=== PATIENT | female | born 1955 | race Caucasian/White ===

== ENCOUNTER 2019-04-04 14:47 | Inpatient (IN) | payer OTHER ==
[2019-04-04 14:52] VITALS: BMI 27.8
--- NOTE | 2019-04-04 15:36 | ED PDOC ---
HPI: Psych/Substance Abuse Time Seen by Provider: 04/04/19 15:02 Chief Complaint (Nursing): Psychiatric Evaluation Chief Complaint (Provider): Psychiatric Evaluation History Per: Patient History/Exam Limitations: no limitations Onset/Duration Of Symptoms: Mins (x30) Current Symptoms Are (Timing): Still Present Additional Complaint(s): 63 y/o female brought in with son for evaluation of suicidal attempt. Son reports patient took 52 mg of Xanax about 30 minutes prior to arrival. Patient is currently complaining of depression. PMD: no provider Past Medical History Reviewed: Historical Data, Nursing Documentation, Vital Signs Vital Signs: Last Vital Signs Temp 97.5 F L 04/04/19 14:52 Pulse 65 04/04/19 14:52 Resp 18 04/04/19 14:52 BP 112/70 04/04/19 14:52 Pulse Ox 99 04/04/19 14:52 Primary Care Provider: Non [facility] Provider, - Medical History PMH: No Chronic Diseases - Surgical History Surgical History: No Surg Hx - Family History Family History: States: Unknown Family Hx - Home Medications Home Medications: Ambulatory Orders Medication Instructions Recorded Unobtainable 07/09/18 - Allergies Allergies/Adverse Reactions: Allergies Allergy/AdvReac Type Severity Reaction Status Date / Time Unobtainable Allergy Verified 07/09/18 14:43 Review of Systems ROS Statement: Except As Marked, All Systems Reviewed And Found Negative Psych: Positive for: Depression, Suicidal ideation (with overdose attempt) Physical Exam - Reviewed Nursing Documentation Reviewed: Yes Vital Signs Reviewed: Yes - Physical Exam Appears: Positive for: No Acute Distress Head Exam: Positive for: ATRAUMATIC, NORMOCEPHALIC Skin: Positive for: Normal Color, Warm, Dry Eye Exam: Positive for: Normal appearance, EOMI, PERRL ENT: Positive for: Normal ENT Inspection Neck: Positive for: Normal, Painless ROM, Supple Cardiovascular/Chest: Positive for: Regular Rate, Rhythm. Negative for: Murmur Respiratory: Positive for: Normal Breath Sounds. Negative for: Respiratory Distress Gastrointestinal/Abdominal: Positive for: Normal Exam, Soft. Negative for: Tenderness, Mass, Guarding, Rebound Back: Positive for: Normal Inspection. Negative for: L CVA Tenderness, R CVA Tenderness, Vertebral Tenderness Extremity: Positive for: Normal ROM. Negative for: Pedal Edema, Deformity Neurological/Psych: Positive for: Awake, Alert, Symmetric/Intact Strength, O riented (x3), Mood/Affect (Depressed Mood/Flat Affect), Cerebellar Tests (normal), rn midwife II-XII (intact). Negative for: Lethargic, Motor/Sensory Deficits, Facial Droop - Laboratory Results Result Diagrams: 04/04/19 16:21 04/04/19 16:21 - ECG Interpretation Of ECG: Sinus deonte @ 58, no ST-T changes. O2 Sat by Pulse Oximetry: 99 (RA) Pulse Ox Interpretation: Normal Medical Decision Making Medical Decision Making: Time: 151 Impression: Suicidal Attempt Plan: -- EKG -- Acetaminophen -- Alcohol Serum -- CMP -- Urine Drug Screen -- Salicylate -- ED Urine Dipstick -- CBC with Differentials -- CXR One View -- 1:1 Observation -- Glucose, Blood, POC -- Urinalysis Scribe Attestation: Documented by Camila Hanley, acting as a scribe for Alie Howe MD. Provider Scribe Attestation: All medical record entries made by the Scribe were at my direction and personally dictated by me. I have reviewed the chart and agree that the record accurately reflects my personal performance of the history, physical exam, medical decision making, and the department course for this patient. I have also personally directed, reviewed, and agree with the discharge instructions and disposition. Disposition - Disposition Forms: [employer] ([place])
[2019-04-04 16:27] LABS: BASO % 0.7 % (0.0-2.0); EOS # 0.1 K/uL (0.0-0.7); EOS % 1.7 % (0.0-4.0); HEMOGLOBIN 12.7 g/dL (12.0-16.0); LYMPH # 1.7 K/uL (1.0-4.3); LYMPH % 32.8 % (20.0-40.0); MEAN CELL VOLUME 88.3 fl (81.0-99.0); MEAN CORPUSCULAR HEMOGLOBIN 29.4 pg (27.0-31.0); MEAN CORPUSCULAR HGB CONC 33.3 g/dL (33.0-37.0); MEAN PLATELET VOLUME 7.9 fl (7.2-11.7); MONO # 0.4 K/uL (0.0-0.8); NEUT # 3.1 K/uL (1.8-7.0); NEUT % 57.8 % (50.0-75.0); NRBC % 0.3 % (0.0-0.0); RBC 4.31 Mil/uL (3.80-5.20); RED CELL DISTRIBUTION WIDTH 14.4 % (11.5-14.5); WHITE BLOOD COUNT 5.3 K/uL (4.8-10.8)
[2019-04-04 16:35] LABS: ALB/GLOB RATIO 1.2 (1.0-2.1); ALBUMIN 4.1 g/dL (3.5-5.0); ALT/SGPT 25 U/L (9-52); AST/SGOT 28 U/L (14-36); BLOOD UREA NITROGEN 14 mg/dl (7-17); CALCIUM 9.3 mg/dL (8.4-10.2); GFR NON-AFRICAN AMERICAN > 60
[2019-04-04] MEDS ORDERED: Potassium Chloride 20 mEq ER Tab PO STA (16:37)
[2019-04-04 16:38] LABS: ACETAMINOPHEN < 10.0 ug/ml (10.0-30.0); SALICYLATE < 1.0 mg/dl
[2019-04-04] MEDS ORDERED: Sodium Chloride 0.9% 1,000 ML IV STA (16:55)
[2019-04-04] MEDS ORDERED: Potassium Chloride 20 mEq ER Tab PO ONE (17:03)
--- NOTE | 2019-04-04 17:39 | ED PDOC ---
- Laboratory Results Result Diagrams: 04/06/19 04:30 04/06/19 04:30 Lab Results: Total Bilirubin 0.4 mg/dl (0.2-1.3) 04/04/19 16:21 AST 28 U/L (14-36) 04/04/19 16:21 ALT 25 U/L (9-52) 04/04/19 16:21 Alkaline Phosphatase 78 U/L (38-126) 04/04/19 16:21 Total Protein 7.4 G/DL (6.3-8.2) 04/04/19 16:21 Albumin 4.1 g/dL (3.5-5.0) 04/04/19 16:21 Globulin 3.3 gm/dL (2.2-3.9) 04/04/19 16:21 Albumin/Globulin Ratio 1.2 (1.0-2.1) 04/04/19 16:21 - ECG O2 Sat by Pulse Oximetry: 99 (RA) Pulse Ox Interpretation: Normal Medical Decision Making Medical Decision Making: Time: 1700 -- Patient endorsed to me by Dr. Howe, pending ER workup, re-assessment and final ER disposition. Time: 1737 -- Discussed with Dr. Mcdaniels, hospitalist events solutions consultant admitting for PMD, Dr. Snowden. Patient to be admitted under his service. -- Discussed with son and patient findings and plan of care. At this time, patient is lethargic but easily arousable with slurred speech. CXR Accession No. : [id number] Patient Name / ID : BREEZY CERNA / [id number] Exam Date : 04/04/2019 15:00:31 ( Approved ) Study Comment : Sex / Age : F / 63Y Creator : Chun Ortega MD Dictator : Chun Ortega MD Hospice Care Transitions Coordinator : Road Gang Supervisor : Chun Ortega MD Approver2 : Report Date : 04/04/2019 18:22:19 My Comment : Date of service: 04/04/2019 HISTORY: OD COMPARISON: None available. TECHNIQUE: 1 view obtained. FINDINGS: LUNGS: No active pulmonary disease. PLEURA: No significant pleural effusion identified, no pneumothorax apparent. CARDIOVASCULAR: No aortic atherosclerotic calcification present. Normal cardiac size. No pulmonary vascular congestion. OSSEOUS STRUCTURES: No significant abnormalities. VISUALIZED UPPER ABDOMEN: Normal. OTHER FINDINGS: None. IMPRESSION: No acute cardiopulmonary disease appreciated. Scribe Attestation: Documented by Camila Hanley, acting as a scribe for Paris Presley MD. Provider Scribe Attestation: All medical record entries made by the Scribe were at my direction and personally dictated by me. I have reviewed the chart and agree that the record accurately reflects my personal performance of the history, physical exam, medical decision making, and the department course for this patient. I have also personally directed, reviewed, and agree with the discharge instructions and disposition. Disposition Counseled Patient/Family Regarding: Studies Performed, Diagnosis - Clinical Impression Clinical Impression: Sedative overdose, Suicidal behavior - POA Present On Arrival: Falls Or Trauma (risk) - Disposition Disposition: Admitted as In-Patient Disposition Time: 17:00 Condition: FAIR
--- NOTE | 2019-04-04 18:26 | RAD ---
Date of service: 04/04/2019 HISTORY: OD COMPARISON: None available. TECHNIQUE: 1 view obtained. FINDINGS: LUNGS: No active pulmonary disease. PLEURA: No significant pleural effusion identified, no pneumothorax apparent. CARDIOVASCULAR: No aortic atherosclerotic calcification present. Normal cardiac size. No pulmonary vascular congestion. OSSEOUS STRUCTURES: No significant abnormalities. VISUALIZED UPPER ABDOMEN: Normal. OTHER FINDINGS: None. IMPRESSION: No acute cardiopulmonary disease appreciated.
[2019-04-04 18:45] LABS: URINE BILIRUBIN NEGATIVE (NEGATIVE); URINE BLOOD NEGATIVE (NEGATIVE); URINE CLARITY CLEAR (Clear); URINE COLOR STRAW (YELLOW); URINE GLUCOSE (UA) NEG (NEGATIVE); URINE LEUKOCYTE ESTERASE NEG Leu/uL (Negative); URINE PROTEIN NEGATIVE (NEGATIVE); URINE UROBILINOGEN 0.2-1.0 mg/dL (0.2-1.0)
[2019-04-04 19:03] LABS: BARBITURATES, UR NEGATIVE (NEGATIVE); BENZODIAZEPINES, UR POSITIVE (NEGATIVE); OPIATES, UR NEGATIVE (NEGATIVE); PHENCYCLIDINE, UR NEGATIVE (NEGATIVE)
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
[2019-04-05] MEDS: Sodium Chloride 0.9% 1,000 ML IV SCH ×3 (03:00→20:28)
[2019-04-05] MEDS ORDERED: Pneumococcal 23-Valent Vaccine IM ONE (06:00)
[2019-04-05 06:14] LABS: BLOOD UREA NITROGEN 10 mg/dl (7-17); CALCIUM 9.2 mg/dL (8.4-10.2); GFR NON-AFRICAN AMERICAN > 60
--- NOTE | 2019-04-05 08:11 | CARD ---
APPROVED REPORT Date of service: 04/05/2019 EKG Measurement Heart [id number] <Conclusion> Sinus bradycardia with 1st degree AV block Otherwise normal ECG
[2019-04-05] MEDS: Enoxaparin 40 mg Syringe SC SCH ×2 (09:22→20:33)
--- NOTE | 2019-04-05 09:32 | CP.PCM.PN ---
<GabbieMatthewLamar - Last Filed: 04/05/19 14:15> Subjective - Date & Time of Evaluation Date of Evaluation: 04/05/19 Time of Evaluation: 09:00 - Subjective Subjective: Patient seen and examined at bedside. Reports mild dizziness. Denies chest pain, shortness of breath, nausea, vomiting, abdominal pain. Asymptomatic bradycardia noted on tele monitor. [facility] [address] - Xanax 2 mg BID - [place] 300mg 1 tablet HS - Nasonex - Crestor 20mg HS - Zyrtec 10mg daily - Singulair 10mg HS - Prozac 40mg daily Objective - Vital Signs/Intake and Output Vital Signs (last 24 hours): Temp Pulse Resp BP Pulse Ox 96.3 F L 46 L 20 106/67 100 04/05/19 07:54 04/05/19 07:54 04/05/19 07:54 04/05/19 07:54 04/05/19 07:54 - Medications Medications: Current Medications Acetaminophen (Tylenol 325mg Tab) 650 mg PO Q6 PRN PRN Reason: Headache Acetaminophen (Tylenol 325mg Tab) 650 mg PO Q6 PRN PRN Reason: Fever >100.4 F Enoxaparin Sodium (Lovenox) 40 mg SC DAILY [facility]; Protocol Last Admin: 04/05/19 09:22 Dose: 40 mg Sodium Chloride (Sodium Chloride 0.9%) 1,000 mls @ 125 mls/hr IV .Q8H [facility] Stop: 04/06/19 02:53 Last Admin: 04/05/19 03:00 Dose: 125 mls/hr - Labs Labs: 04/04/19 16:21 04/05/19 05:28 - Constitutional Appears: No Acute Distress - Eye Exam Eye Exam: Normal appearance - ENT Exam ENT Exam: Mucous Membranes Moist - Respiratory Exam Respiratory Exam: Clear to Ausculation Bilateral, NORMAL BREATHING PATTERN. absent: Accessory Muscle Use, Chest Wall Tenderness, Decreased Breath Sounds, Prolonged Expiratory Phase, Rales, Rhonchi, Wheezes, Respiratory Distress, Stridor - Cardiovascular Exam Cardiovascular Exam: +S1, +S2 - GI/Abdominal Exam GI & Abdominal Exam: Soft, Normal Bowel Sounds. absent: Distended, Firm, Guarding, Rigid, Tenderness, Rebound - Neurological Exam Neurological Exam: Alert Additional comments: Speaking slowly and answering questions inappropriately. Denies SI/HI at this time but does not want to state why she wanted to kill herself yesterday. - Psychiatric Exam Psychiatric exam: Depressed. absent: Homicidal Ideation, Suicidal Ideation Additional comments: Denies SI/HI at this time but does not want to state why she wanted to kill herself yesterday. - Skin Skin Exam: Dry, Intact, Normal Color, Warm Assessment and Plan - Assessment and Plan (Free Text) Assessment: 63 yo Female with history of HTN, HLD, bipolar disorder and schizophrenia is admitted for drug overdose. Poison controlled was called, monitor neuro and respiratory status. Drug levels checked as per poison control, neg. Psychiatry consult, continue home medications including [place] and Prozac. Plan: Drug Overdose - Xanax overdose - poison control - c/w with neuro checks - psycho consulted, appreciate recommendations - [facility] protocol - continue 1:1 obs - blood work reviewed: wn - [facility] protocol Bipolar disorder and schizophrenia - c/w with [place] 300mg 1 tablet HS; Prozac 40mg daily --> verified with pt's pharmacy 04/05/19 - psych consulted- appreciate recommendations HTN/HLD - chronic - currently well controlled - c/t monitor Hypokalemia and mild hypochloremia - Resolved DVT prolx - Lovenox SC <Christy Oliveros - Last Filed: 04/05/19 16:45> Objective - Vital Signs/Intake and Output Vital Signs (last 24 hours): Temp Pulse Resp BP Pulse Ox 97.8 F 50 L 16 109/74 97 04/05/19 16:08 04/05/19 16:08 04/05/19 16:08 04/05/19 16:08 04/05/19 16:08 - Medications Medications: Current Medications Acetaminophen (Tylenol 325mg Tab) 650 mg PO Q6 PRN PRN Reason: Headache Acetaminophen (Tylenol 325mg Tab) 650 mg PO Q6 PRN PRN Reason: Fever >100.4 F Atorvastatin Calcium (Lipitor) 20 mg PO HS [facility] Chlordiazepoxide (Librium) 25 mg PO Q4H PRN PRN Reason: Withdrawl Enoxaparin Sodium (Lovenox) 40 mg SC DAILY [facility]; Protocol Last Admin: 04/05/19 09:22 Dose: 40 mg Fluoxetine HCl (Prozac) 40 mg PO DAILY [facility] Last Admin: 04/05/19 16:15 Dose: 40 mg Sodium Chloride (Sodium Chloride 0.9%) 1,000 mls @ 125 mls/hr IV .Q8H [facility] Stop: 04/06/19 02:53 Last Admin: 04/05/19 12:02 Dose: 125 mls/hr [place] Carbonate ([place] Carbonate 300mg) 300 mg PO HS [facility] Montelukast Sodium (Singulair) 10 mg PO HS [facility] - Labs Labs: 04/04/19 16:21 04/05/19 05:28 Attending/Attestation - Attestation I have personally seen and examined this patient.: Yes I have fully participated in the care of the patient.: Yes I have reviewed all pertinent clinical information, including history, physical exam and plan: Yes Notes (Text): Intentional Drug Overdose ( Benzodiazepine- Xanax) Suicidal Attempt Bipolar Disorder Hyperlipidemia -Pt being monitored in Telemetry -due to bradycardia ( HR 50s , pt's baseline is in the 60s) - Psych consulted- rec 1:1 and [facility] for Involuntary Psych - will continue to monitor in Telemetry
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
--- NOTE | 2019-04-05 10:10 | CARD ---
APPROVED REPORT Date of service: 04/04/2019 EKG Measurement Heart [id number] <Conclusion> Sinus bradycardia Otherwise normal ECG
[2019-04-06 06:07] LABS: HEMOGLOBIN 12.7 g/dL (12.0-16.0); MEAN CELL VOLUME 90.6 fl (81.0-99.0); MEAN CORPUSCULAR HEMOGLOBIN 29.8 pg (27.0-31.0); MEAN CORPUSCULAR HGB CONC 32.9 g/dL (33.0-37.0); RBC 4.25 Mil/uL (3.80-5.20); RED CELL DISTRIBUTION WIDTH 14.6 % (11.5-14.5); WHITE BLOOD COUNT 7.6 K/uL (4.8-10.8)
[2019-04-06 06:36] LABS: BLOOD UREA NITROGEN 13 mg/dl (7-17); CALCIUM 9.2 mg/dL (8.4-10.2); GFR NON-AFRICAN AMERICAN > 60
[2019-04-06] MEDS: Enoxaparin 40 mg Syringe SC SCH (09:00)
--- NOTE | 2019-04-06 10:44 | CP.PCM.PN ---
<HeribertodalyleónjessikaMatthew aggarwalLamar - Last Filed: 04/06/19 10:41> Subjective - Date & Time of Evaluation Date of Evaluation: 04/06/19 Time of Evaluation: 10:41 - Subjective Subjective: Patient seen and examined at bedside. Patient is asleep, recieved Ativan and Haldol overnight as she was agitated and wanted to elope. Unable to answer any questions at this time given she is sleeping. P[place] [facility] [place]. Objective - Vital Signs/Intake and Output Vital Signs (last 24 hours): Temp Pulse Resp BP Pulse Ox 97.9 F 59 L 18 91/58 L 98 04/06/19 07:55 04/06/19 07:55 04/06/19 07:55 04/06/19 07:55 04/06/19 07:55 - Medications Medications: Current Medications Acetaminophen (Tylenol 325mg Tab) 650 mg PO Q6 PRN PRN Reason: Headache Acetaminophen (Tylenol 325mg Tab) 650 mg PO Q6 PRN PRN Reason: Fever >100.4 F Atorvastatin Calcium (Lipitor) 20 mg PO [facility] Last Admin: 04/05/19 21:57 Dose: 20 mg Chlordiazepoxide (Librium) 25 mg PO Q4H PRN PRN Reason: Withdrawl Enoxaparin Sodium (Lovenox) 40 mg SC DAILY [facility]; Protocol Last Admin: 04/05/19 20:33 Dose: Not Given Fluoxetine HCl (Prozac) 40 mg PO DAILY [facility] Last Admin: 04/06/19 08:59 Dose: 40 mg [place] Carbonate ([place] Carbonate 300mg) 300 mg PO [facility] Last Admin: 04/05/19 21:57 Dose: 300 mg Montelukast Sodium (Singulair) 10 mg PO [facility] Last Admin: 04/05/19 21:57 Dose: 10 mg - Labs Labs: 04/06/19 04:30 04/06/19 04:30 - Constitutional Appears: No Acute Distress - Eye Exam Eye Exam: Normal appearance - Respiratory Exam Respiratory Exam: Clear to Ausculation Bilateral, NORMAL BREATHING PATTERN. absent: Accessory Muscle Use, Chest Wall Tenderness, Decreased Breath Sounds, Prolonged Expiratory Phase, Rales, Rhonchi, Wheezes, Respiratory Distress, Stridor - Cardiovascular Exam Cardiovascular Exam: +S1, +S2 - GI/Abdominal Exam GI & Abdominal Exam: Soft, Normal Bowel Sounds. absent: Distended, Firm, Guarding, Rigid, Tenderness, Rebound - Extremities Exam Extremities Exam: Normal Capillary Refill, Normal Inspection. absent: Calf Tenderness, Pedal Edema, Tenderness - Neurological Exam Additional comments: Asleep secondary to haldol and ativan overnight. - Skin Skin Exam: Dry, Intact, Normal Color, Warm Assessment and Plan - Assessment and Plan (Free Text) Assessment: 63 yo Female with history of HTN, HLD, bipolar disorder and schizophrenia is admitted for drug overdose. Poison controlled was called, monitor neuro and respiratory status. Drug levels checked as per poison control, neg. Pending [facility] [place] for involuntary psychiatric admission. Patient tried to elope yesterday with son and was agitated- was given Haldol and Ativan at that time. Plan: Drug Overdose -Xanax overdose -poison control -c/w with neuro checks -psych consulted- [facility] [place]. - EVELIN protocol - continue 1:1 obs - blood work reviewed: wnl Bipolar disorder and schizophrenia - c/w with [place] 300mg 1 tablet HS; Prozac 40mg daily --> verified with pt's pharmacy - psych consulted- [facility] [place] HTN/HLD -chronic -currently well controlled -c/t monitor Hypokalemia and mild hypochloremia - Resolved DVT prolx -Lovenox <Oneal Peter D - Last Filed: 04/06/19 11:01> Objective - Vital Signs/Intake and Output Vital Signs (last 24 hours): Temp Pulse Resp BP Pulse Ox 97.9 F 59 L 18 91/58 L 98 04/06/19 07:55 04/06/19 07:55 04/06/19 07:55 04/06/19 07:55 04/06/19 07:55 - Medications Medications: Current Medications Acetaminophen (Tylenol 325mg Tab) 650 mg PO Q6 PRN PRN Reason: Headache Acetaminophen (Tylenol 325mg Tab) 650 mg PO Q6 PRN PRN Reason: Fever >100.4 F Atorvastatin Calcium (Lipitor) 20 mg PO HS [facility] Last Admin: 04/05/19 21:57 Dose: 20 mg Chlordiazepoxide (Librium) 25 mg PO Q4H PRN PRN Reason: Withdrawl Enoxaparin Sodium (Lovenox) 40 mg SC DAILY [facility]; Protocol Last Admin: 04/05/19 20:33 Dose: Not Given Fluoxetine HCl (Prozac) 40 mg PO DAILY [facility] Last Admin: 04/06/19 08:59 Dose: 40 mg [place] Carbonate ([place] Carbonate 300mg) 300 mg PO [facility] Last Admin: 04/05/19 21:57 Dose: 300 mg Montelukast Sodium (Singulair) 10 mg PO [facility] Last Admin: 04/05/19 21:57 Dose: 10 mg - Labs Labs: 04/06/19 04:30 04/06/19 04:30 Attending/Attestation - Attestation I have personally seen and examined this patient.: Yes I have fully participated in the care of the patient.: Yes I have reviewed all pertinent clinical information, including history, physical exam and plan: Yes Notes (Text): 04/06/19 11:00 Patient seen and examined with resident. Case discussed and agreed with assessment and plan.
[2019-04-06 15:43] VITALS: RESP 20
--- NOTE | 2019-04-06 19:17 | CP.PCM.DIS ---
<Latha Momin - Last Filed: 04/06/19 19:21> Provider - Provider Date of Admission: 04/04/19 17:36 Attending physician: Oneal Peter MD Consults: 04/04/19 18:56 Psychiatry Consult Routine Comment: Consulting Provider: Gianni Collier Consulting Physician: Gianni Collier Reason for Consult: Overdose with Xanax, please eval Time Spent in preparation of Discharge (in minutes): 45 Diagnosis - Discharge Diagnosis (1) Sedative overdose Status: Acute (2) Suicidal behavior Status: Acute Hospital Course - Lab Results Lab Results: Most Recent Lab Values WBC 7.6 K/uL (4.8-10.8) 04/06/19 04:30 RBC 4.25 Mil/uL (3.80-5.20) 04/06/19 04:30 Hgb 12.7 g/dL (12.0-16.0) 04/06/19 04:30 Hct 38.5 % (34.0-47.0) 04/06/19 04:30 MCV 90.6 fl (81.0-99.0) D 04/06/19 04:30 MCH 29.8 pg (27.0-31.0) 04/06/19 04:30 MCHC 32.9 g/dL (33.0-37.0) L 04/06/19 04:30 RDW 14.6 % (11.5-14.5) H 04/06/19 04:30 Plt Count 254 K/uL (130-400) 04/06/19 04:30 MPV 7.9 fl (7.2-11.7) 04/04/19 16:21 Neut % (Auto) 57.8 % (50.0-75.0) 04/04/19 16:21 Lymph % (Auto) 32.8 % (20.0-40.0) 04/04/19 16:21 [place] % (Auto) 7.0 % (0.0-10.0) 04/04/19 16:21 Eos % (Auto) 1.7 % (0.0-4.0) 04/04/19 16:21 Baso % (Auto) 0.7 % (0.0-2.0) 04/04/19 16:21 Neut # (Auto) 3.1 K/uL (1.8-7.0) 04/04/19 16:21 Lymph # (Auto) 1.7 K/uL (1.0-4.3) 04/04/19 16:21 [place] # (Auto) 0.4 K/uL (0.0-0.8) 04/04/19 16:21 Eos # (Auto) 0.1 K/uL (0.0-0.7) 04/04/19 16:21 Baso # (Auto) 0.0 K/uL (0.0-0.2) 04/04/19 16:21 Sodium 138 mmol/l (132-148) 04/06/19 04:30 Potassium 3.6 MMOL/L (3.6-5.0) 04/06/19 04:30 Chloride 106 mmol/L (98-107) 04/06/19 04:30 Carbon Dioxide 24 mmol/L (22-30) 04/06/19 04:30 Anion Gap 12 (10-20) 04/06/19 04:30 BUN 13 mg/dl (7-17) 04/06/19 04:30 Creatinine 0.7 mg/dl (0.7-1.2) 04/06/19 04:30 Est GFR ( Amer) > 60 04/06/19 04:30 Est GFR (Non-Af Amer) > 60 04/06/19 04:30 POC Glucose (mg/dL) 106 mg/dL (65-110) 04/04/19 16:08 Random Glucose 93 mg/dL (65-105) 04/06/19 04:30 Calcium 9.2 mg/dL (8.4-10.2) 04/06/19 04:30 Total Bilirubin 0.4 mg/dl (0.2-1.3) 04/04/19 16:21 AST 28 U/L (14-36) 04/04/19 16:21 ALT 25 U/L (9-52) 04/04/19 16:21 Alkaline Phosphatase 78 U/L (38-126) 04/04/19 16:21 Total Protein 7.4 G/DL (6.3-8.2) 04/04/19 16:21 Albumin 4.1 g/dL (3.5-5.0) 04/04/19 16:21 Globulin 3.3 gm/dL (2.2-3.9) 04/04/19 16:21 Albumin/Globulin Ratio 1.2 (1.0-2.1) 04/04/19 16:21 Urine Color Straw (YELLOW) 04/04/19 18:36 Urine Clarity Clear (Clear) 04/04/19 18:36 Urine pH 8.0 (5.0-8.0) 04/04/19 18:36 Ur Specific [place] 1.005 (1.003-1.030) 04/04/19 18:36 Urine Protein Negative mg/dL (NEGATIVE) 04/04/19 18:36 Urine Glucose (UA) Neg mg/dL (NEGATIVE) 04/04/19 18:36 Urine Ketones Negative mg/dL (NEGATIVE) 04/04/19 18:36 Urine Blood Negative (NEGATIVE) 04/04/19 18:36 Urine Nitrate Negative (NEGATIVE) 04/04/19 18:36 Urine Bilirubin Negative (NEGATIVE) 04/04/19 18:36 Urine Urobilinogen 0.2-1.0 mg/dL (0.2-1.0) 04/04/19 18:36 Ur Leukocyte Esterase Neg [place]ia/uL (Negative) 04/04/19 18:36 Urine Microscopic WBC < 1 /hpf (0-5) 04/04/19 18:36 Salicylates < 1.0 mg/dl 04/04/19 16:21 Urine Opiates Screen Negative (NEGATIVE) 04/04/19 18:36 Urine Methadone Screen Negative (NEGATIVE) 04/04/19 18:36 Acetaminophen < 10.0 ug/ml (10.0-30.0) L 04/04/19 16:21 Ur Barbiturates Screen Negative (NEGATIVE) 04/04/19 18:36 Ur Phencyclidine Scrn Negative (NEGATIVE) 04/04/19 18:36 Ur Amphetamines Screen Negative (NEGATIVE) 04/04/19 18:36 U Benzodiazepines Scrn Positive (NEGATIVE) 04/04/19 18:[address] [place] [address] [place] < 0.2 MMOL/L (0.6-1.2) L 04/05/19 20:40 U Oth Cocaine Metabols Negative (NEGATIVE) 04/04/19 18:36 U Cannabinoids Screen Negative (NEGATIVE) 04/04/19 18:36 Alcohol, Quantitative < 10 mg/dl (0-10) 04/04/19 16:21 - Hospital Course Hospital Course: 63 YO Female with PMHx of HTN, HLD, bipolar disorder and schizophrenia was admitted for opioid overdose and Suicidal ideation. Poison controlled was called, pt was under constant neuro and cardio-respiratory monitor while in-patient. During her stay, patient experienced mild bradycardia but that improved subsequently, and mental status cleared but patient continued to be agitated, wanted to leave the hospital and tried to elope. Psych was consulted, and recs involuntary hospitalization. Home medications were restarted, and at this time patient is medically stable and cleared for psych admission at [facility] for further management of her condition. Discharge Exam - Head Exam Head Exam: NORMAL INSPECTION - Eye Exam Eye Exam: Normal appearance - Respiratory Exam Respiratory Exam: Clear to PA & Lateral, NORMAL BREATHING PATTERN - Cardiovascular Exam Cardiovascular Exam: REGULAR RHYTHM, +S1, +S2 - GI/Abdominal Exam GI & Abdominal Exam: Normal Bowel Sounds, Soft. absent: Tenderness - Back Exam Back exam: NORMAL INSPECTION - Neurological Exam Neurological exam: Alert - Psychiatric Exam Psychiatric exam: Anxious Discharge Plan - Follow Up Plan Condition: FAIR Disposition: HOME/ ROUTINE <Oneal Peter - Last Filed: 04/06/19 19:59> Provider - Provider Date of Admission: 04/04/19 17:36 Attending physician: Oneal Peter MD Consults: 04/04/19 18:56 Psychiatry Consult Routine Comment: Consulting Provider: Gianni Collier Consulting Physician: Gianni Collier Reason for Consult: Overdose with Xanax, please eval Hospital Course - Lab Results Lab Results: Most Recent Lab Values WBC 7.6 K/uL (4.8-10.8) 04/06/19 04:30 RBC 4.25 Mil/uL (3.80-5.20) 04/06/19 04:30 Hgb 12.7 g/dL (12.0-16.0) 04/06/19 04:30 Hct 38.5 % (34.0-47.0) 04/06/19 04:30 MCV 90.6 fl (81.0-99.0) D 04/06/19 04:30 MCH 29.8 pg (27.0-31.0) 04/06/19 04:30 MCHC 32.9 g/dL (33.0-37.0) L 04/06/19 04:30 RDW 14.6 % (11.5-14.5) H 04/06/19 04:30 Plt Count 254 K/uL (130-400) 04/06/19 04:30 MPV 7.9 fl (7.2-11.7) 04/04/19 16:21 Neut % (Auto) 57.8 % (50.0-75.0) 04/04/19 16:21 Lymph % (Auto) 32.8 % (20.0-40.0) 04/04/19 16:21 [place] % (Auto) 7.0 % (0.0-10.0) 04/04/19 16:21 Eos % (Auto) 1.7 % (0.0-4.0) 04/04/19 16:21 Baso % (Auto) 0.7 % (0.0-2.0) 04/04/19 16:21 Neut # (Auto) 3.1 K/uL (1.8-7.0) 04/04/19 16:21 Lymph # (Auto) 1.7 K/uL (1.0-4.3) 04/04/19 16:21 [place] # (Auto) 0.4 K/uL (0.0-0.8) 04/04/19 16:21 Eos # (Auto) 0.1 K/uL (0.0-0.7) 04/04/19 16:21 Baso # (Auto) 0.0 K/uL (0.0-0.2) 04/04/19 16:21 Sodium 138 mmol/l (132-148) 04/06/19 04:30 Potassium 3.6 MMOL/L (3.6-5.0) 04/06/19 04:30 Chloride 106 mmol/L (98-107) 04/06/19 04:30 Carbon Dioxide 24 mmol/L (22-30) 04/06/19 04:30 Anion Gap 12 (10-20) 04/06/19 04:30 BUN 13 mg/dl (7-17) 04/06/19 04:30 Creatinine 0.7 mg/dl (0.7-1.2) 04/06/19 04:30 Est GFR ( Amer) > 60 04/06/19 04:30 Est GFR (Non-Af Amer) > 60 04/06/19 04:30 POC Glucose (mg/dL) 106 mg/dL (65-110) 04/04/19 16:08 Random Glucose 93 mg/dL (65-105) 04/06/19 04:30 Calcium 9.2 mg/dL (8.4-10.2) 04/06/19 04:30 Total Bilirubin 0.4 mg/dl (0.2-1.3) 04/04/19 16:21 AST 28 U/L (14-36) 04/04/19 16:21 ALT 25 U/L (9-52) 04/04/19 16:21 Alkaline Phosphatase 78 U/L (38-126) 04/04/19 16:21 Total Protein 7.4 G/DL (6.3-8.2) 04/04/19 16:21 Albumin 4.1 g/dL (3.5-5.0) 04/04/19 16:21 Globulin 3.3 gm/dL (2.2-3.9) 04/04/19 16:21 Albumin/Globulin Ratio 1.2 (1.0-2.1) 04/04/19 16:21 Urine Color Straw (YELLOW) 04/04/19 18:36 Urine Clarity Clear (Clear) 04/04/19 18:36 Urine pH 8.0 (5.0-8.0) 04/04/19 18:36 Ur Specific [place] 1.005 (1.003-1.030) 04/04/19 18:36 Urine Protein Negative mg/dL (NEGATIVE) 04/04/19 18:36 Urine Glucose (UA) Neg mg/dL (NEGATIVE) 04/04/19 18:36 Urine Ketones Negative mg/dL (NEGATIVE) 04/04/19 18:36 Urine Blood Negative (NEGATIVE) 04/04/19 18:36 Urine Nitrate Negative (NEGATIVE) 04/04/19 18:36 Urine Bilirubin Negative (NEGATIVE) 04/04/19 18:36 Urine Urobilinogen 0.2-1.0 mg/dL (0.2-1.0) 04/04/19 18:36 Ur Leukocyte Esterase Neg Alicia/uL (Negative) 04/04/19 18:36 Urine Microscopic WBC < 1 /hpf (0-5) 04/04/19 18:36 Salicylates < 1.0 mg/dl 04/04/19 16:21 Urine Opiates Screen Negative (NEGATIVE) 04/04/19 18:36 Urine Methadone Screen Negative (NEGATIVE) 04/04/19 18:36 Acetaminophen < 10.0 ug/ml (10.0-30.0) L 04/04/19 16:21 Ur Barbiturates Screen Negative (NEGATIVE) 04/04/19 18:36 Ur Phencyclidine Scrn Negative (NEGATIVE) 04/04/19 18:36 Ur Amphetamines Screen Negative (NEGATIVE) 04/04/19 18:36 U Benzodiazepines Scrn Positive (NEGATIVE) 04/04/19 18:[address] [place] < 0.2 MMOL/L (0.6-1.2) L 04/05/19 20:40 U Oth Cocaine Metabols Negative (NEGATIVE) 04/04/19 18:36 U Cannabinoids Screen Negative (NEGATIVE) 04/04/19 18:36 Alcohol, Quantitative < 10 mg/dl (0-10) 04/04/19 16:21 Attending/Attestation - Attestation I have personally seen and examined this patient.: Yes I have fully participated in the care of the patient.: Yes I have reviewed all pertinent clinical information, including history, physical exam and plan: Yes Notes (Text): 04/06/19 19:58 Patient seen and examined with resident. Case disccused and agreed with assessment. Patient discharged in stable condition
[2019-04-06 20:24] VITALS: BP 119/75; PULSE 59; TEMP 98; O2SAT 95
== END 2019-04-06 23:50 | DRG 918 ==
LOC: H.ER 14:47 → H.ERHOLD 17:36 → H.TEL 22:34
PROC: 3E0234Z Introduction of Serum, Toxoid and Vaccine into Muscle, Percutaneous Approach (ICD-10-PCS; principal; 2019-04-05)
DX: T42.4X2A Poisoning by benzodiazepines, intentional self-harm, initial encounter (principal); I10 Essential (primary) hypertension; E78.5 Hyperlipidemia, unspecified; F31.9 Bipolar disorder, unspecified; F20.9 Schizophrenia, unspecified; Z91.5 Personal history of self-harm; E87.6 Hypokalemia; E87.8 Other disorders of electrolyte and fluid balance, not elsewhere classified; R00.1 Bradycardia, unspecified; Z23 Encounter for immunization